=== PATIENT | male | born 1955 | race Caucasian/White ===

== ENCOUNTER 2017-05-04 11:51 | Emergency (ER) | payer OTHER ==
[~2017-05-04] VITALS: Ht 200.7 cm; Wt 136.0 kg
[~2017-05-04 11:51] MED LIST: CYCL5TAB PO; IBUP600T26 PO; METH750T2 PO; MOBI15TA PO
[2017-05-04 11:55] VITALS: BP 161/85; PULSE 78; RESP 16; TEMP 98.2; O2SAT 94
[2017-05-04] MEDS ORDERED: PARO20TA2 PO (12:16)
[2017-05-04] MEDS ORDERED: CHOL10008 PO (12:16)
[2017-05-04] MEDS ORDERED: LOVA40TA PO (12:16)
[2017-05-04] MEDS ORDERED: DILT30TA PO (12:16)
--- NOTE | 2017-05-04 12:20 | PD ---
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 DENIES ALLEVIATING /AGGRAVATING FACTORS. ALL:DENIES PMHX: HYPERLIPIDEMIA, CKD STAGE 2, PSHX: BACK SURGERY PFSH Past Medical History Influenza Vaccination: No Social History Alcohol Use: No Tobacco Use: No Substance Use: No Allergies-Medications (Allergen,Severity, Reaction): Coded Allergies: No Known Allergies (Unverified Adverse Reaction, Unknown, 05/04/17) Reported Meds & Prescriptions Reported Meds & Active Scripts Active Flexeril (Cyclobenzaprine HCl) 10 Mg Tab 10 Mg PO TID 3 Days Codeine-Acetaminophen 30-300 mg Tab 1 Tab PO Q4H PRN Cipro (Ciprofloxacin HCl) 500 Mg Tab 500 Mg PO BID 3 Days Reported Vitamin D3 (Cholecalciferol) 1,000 Unit Cap Unknown Dose PO DAILY Paroxetine (Paroxetine HCl) 20 Mg Tab 20 Mg PO DAILY Lovastatin 40 Mg Tab 40 Mg PO EVERY OTHER DAY Diltiazem (Diltiazem HCl) 30 Mg Tab Unknown Dose PO DAILY Review of Systems General / Constitutional: No: Fever Eyes: No: Visual changes HENT: No: Headaches Cardiovascular: No: Chest Pain or Discomfort Respiratory: No: Shortness of Breath Gastrointestinal: No: Abdominal Pain Genitourinary: Positive: Flank Pain Musculoskeletal: No: Pain Skin: No Rash Neurologic: No: Weakness Psychiatric: No: Depression Endocrine: No: Polydipsia Hematologic/Lymphatic: No: Easy Bruising Physical Exam Narrative GENERAL: SKIN: Warm and dry. HEAD: Atraumatic. Normocephalic. EYES: Pupils equal and round. No scleral icterus. No injection or drainage. ENT: No nasal bleeding or discharge. Mucous membranes pink and moist. NECK: Trachea midline. No JVD. CARDIOVASCULAR: Regular rate and rhythm. RESPIRATORY: No accessory muscle use. Clear to auscultation. Breath sounds equal bilaterally. GASTROINTESTINAL: Abdomen soft, non-tender, nondistended. C/O RT CVA AREA, positive reproducible pain and specifically worsen by twisting motion MUSCULOSKELETAL: Extremities without clubbing, cyanosis, or edema. No obvious deformities. NEUROLOGICAL: Awake and alert. No obvious cranial nerve deficits. Motor grossly within normal limits. Five out of 5 muscle strength in the arms and legs. Normal speech. PSYCHIATRIC: Appropriate mood and affect; insight and judgment normal. Data Data Last Documented VS Orders Orders Complete Blood Count With Diff (05/04/17 12:24) Comprehensive Metabolic Panel (05/04/17 12:24) Ct Abd/Pel W/O Iv Contrast (05/04/17 12:24) Ecg Monitoring (05/04/17 12:24) Iv Access Insert/Monitor (05/04/17 12:24) Sodium Chloride 0.9% Flush (Ns Flush) (05/04/17 12:30) Lipase (05/04/17 12:24) Ketorolac Inj (Toradol Inj) (05/04/17 14:30) Lorazepam Inj (Ativan Inj) (05/04/17 14:30) Ed Discharge Order (05/04/17 15:31) Labs Laboratory Tests Test 05/04/17 12:30 White Blood Count 7.4 TH/MM3 Red Blood Count 4.53 MIL/MM3 Hemoglobin 14.0 GM/DL Hematocrit 42.8 % Mean Corpuscular Volume 94.5 FL Mean Corpuscular Hemoglobin 30.9 PG Mean Corpuscular Hemoglobin Concent 32.7 % Red Cell Distribution Width 12.5 % Platelet Count 355 TH/MM3 Mean Platelet Volume 8.1 FL Neutrophils (%) (Auto) 66.7 % Lymphocytes (%) (Auto) 21.9 % Monocytes (%) (Auto) 9.8 % Eosinophils (%) (Auto) 0.6 % Basophils (%) (Auto) 1.0 % Neutrophils # (Auto) 5.1 TH/MM3 Lymphocytes # (Auto) 1.6 TH/MM3 Monocytes # (Auto) 0.7 TH/MM3 Eosinophils # (Auto) 0.0 TH/MM3 Basophils # (Auto) 0.1 TH/MM3 CBC Comment DIFF FINAL Differential Comment Blood Urea Nitrogen 14 MG/DL Creatinine 1.10 MG/DL Random Glucose 107 MG/DL Total Protein 8.4 GM/DL Albumin 4.0 GM/DL Calcium Level 9.1 MG/DL Alkaline Phosphatase 66 U/L Aspartate Amino Transf (AST/SGOT) 34 U/L Alanine Aminotransferase (ALT/SGPT) 50 U/L Total Bilirubin 0.4 MG/DL Sodium Level 137 MEQ/L Potassium Level 4.0 MEQ/L Chloride Level 106 MEQ/L Carbon Dioxide Level 23.8 MEQ/L Anion Gap 7 MEQ/L Estimat Glomerular Filtration Rate 68 ML/MIN Lipase 113 U/L MDM Medical Decision Making Medical Screen Exam Complete: Yes Emergency Medical Condition: Yes Medical Record Reviewed: Yes Differential Diagnosis KIDNEY STONES V PYELO V COLITIS V MUSCLE STRAIN Narrative Course NORMAL CBC (NO LEUKOCYTOSIS NOR ANY ANEMIA), NORMAL ELECTROLYTES, NORMAL LIVER/ KIDNEY/PANCREAS FUNCTIONS. Diagnosis Primary Impression: RIGHT MUSCLE STRAIN (BACK) Patient Instructions: General Instructions, Muscle Strain (DC) Scripts Cyclobenzaprine (Flexeril) 10 Mg Tab 10 MG PO TID for Muscle Spasm for 3 Days, #12 TAB 0 Refills Prov: Donal Aguillon MD 05/04/17 Codeine-Acetaminophen (Codeine-Acetaminophen) 30-300 mg Tab 1 TAB PO Q4H Y for PAIN, #12 TAB 0 Refills Prov: Donal Aguillon MD 05/04/17 Ciprofloxacin (Cipro) 500 Mg Tab 500 MG PO BID for Infection for 3 Days, #6 TAB 0 Refills Prov: Donal Aguillon MD 05/04/17 Disposition: 01 DISCHARGE HOME Condition: Stable Donal Aguillon MD May 04, 2017 12:20
[2017-05-04] MEDS ORDERED: SODIUM CHLORIDE 0.9% FLUSH 10 ML FLUSH IVF PRN (12:30)
[2017-05-04 12:39] LABS: AUTOMATED NEUTROPHIL # 5.1 TH/MM3 (1.8-7.7); BASOPHIL # 0.1 TH/MM3 (0-0.2); EOSINOPHIL % 0.6 % (0.0-4.0); HEMATOCRIT 42.8 % (39.0-51.0); LYMPH % 21.9 % (9.0-44.0); LYMPHOCYTE # 1.6 TH/MM3 (1.0-4.8); MEAN CELL VOLUME 94.5 FL (80.0-100.0); MEAN CORPUSCULAR HEMOGLOBIN 30.9 PG (27.0-34.0); MEAN CORPUSCULAR HGB CONC 32.7 % (32.0-36.0); MEAN PLATELET VOLUME 8.1 FL (7.0-11.0); MONO % 9.8 % (0.0-8.0); MONOCYTE # 0.7 TH/MM3 (0-0.9); NEUT % 66.7 % (16.0-70.0); PLATELET COUNT 355 TH/MM3 (150-450); RED BLOOD COUNT 4.53 MIL/MM3 (4.50-5.90); RED CELL DISTRIBUTION WIDTH 12.5 % (11.6-17.2); WHITE BLOOD COUNT 7.4 TH/MM3 (4.0-11.0)
[2017-05-04 12:46] LABS: CHLORIDE 106 MEQ/L (98-107); SODIUM (NA) 137 MEQ/L (136-145)
[2017-05-04 12:49] LABS: CALCIUM 9.1 MG/DL (8.5-10.1)
[2017-05-04 12:50] LABS: BICARBONATE 23.8 MEQ/L (21.0-32.0); BLOOD UREA NITROGEN 14 MG/DL (7-18); GLUCOSE,RANDOM 107 MG/DL (74-106); LIPASE 113 U/L (73-393)
[2017-05-04 12:53] LABS: ALT (GPT) 50 U/L (12-78); AST (GOT) 34 U/L (15-37); GLOMERULAR FILTRATION RATE 68 ML/MIN (>89)
[2017-05-04 12:54] LABS: TOTAL BILIRUBIN ADULT 0.4 MG/DL (0.2-1.0); TOTAL PROTEIN 8.4 GM/DL (6.4-8.2)
[2017-05-04 12:56] LABS: ALKALINE PHOSPHATASE 66 U/L (45-117)
--- NOTE | 2017-05-04 14:13 | RADRPT ---
EXAM DATE/TIME: 05/04/2017 13:47 [facility] COMPARISON: No previous studies available for comparison. INDICATIONS : Right flank pain. ORAL CONTRAST: No oral contrast ingested. RADIATION DOSE: 28.16 CTDIvol (mGy) ; Patient body habitus MEDICAL HISTORY : None SURGICAL HISTORY : Back surgery. ENCOUNTER: Initial ACUITY: 1 day PAIN SCALE: 7/10 LOCATION: Right flank TECHNIQUE: Volumetric scanning of the abdomen and pelvis was performed. Using automated exposure control and ad justment of the mA and/or kV according to patient size, radiation dose was kept as low as reasonably achievable to obtain optimal diagnostic quality images. DICOM format image data is available electro nically for review and comparison. FINDINGS: LOWER LUNGS: The visualized lower lungs are clear. LIVER: Homogeneous density without lesion. There is no dilation of the biliary tree. No calcified gallston es. SPLEEN: Normal size without lesion. PANCREAS: Within normal limits. KIDNEYS: Normal in size and shape. There is no mass, stone, or hydronephrosis. ADRENAL GLANDS: Within normal limits. VASCULAR: There is no aortic aneurysm. BOWEL/MESENTERY: The stomach, small bowel, and colon demonstrate no acute abnormality. There is no free intraperitone al air or fluid. ABDOMINAL WALL: Within normal limits. RETROPERITONEUM: There is no lymphadenopathy. BLADDER: No wall thickening or mass. REPRODUCTIVE: Within normal limits. INGUINAL: There is no lymphadenopathy or hernia. MUSCULOSKELETAL: Degenerative changes involving the lumbar spine most pronounced at L5-S1. CONCLUSION: 1. No acute abnormality to explain the patient's right flank pain. In particular, no stones. Estevan Steiner Jr., MD on May 04, 2017 at 14:08 Board Certified Radiologist. This report was verified electronically.
[2017-05-04] MEDS ORDERED: LORazepam 2 MG/ML VIAL IV PUSH ONE (14:30)
[2017-05-04] MEDS ORDERED: KETOROLAC TROMETHAMINE 30 MG/ML (IVP) VIAL IV PUSH ONE (14:30)
[2017-05-04 14:53] VITALS: BP 149/81; PULSE 75; RESP 18; O2SAT 100
[2017-05-04 15:20] VITALS: RESP 16
[2017-05-04] MEDS ORDERED: CIPR-9 PO (15:30)
[2017-05-04] MEDS ORDERED: CODE30TA2 PO (15:30)
[2017-05-04] MEDS ORDERED: CYCL10TA PO (15:36)
== END 2017-05-04 15:47 | disposition home or self-care (01) ==
LOC: PHED 11:51
DX: S29.012A Strain of muscle and tendon of back wall of thorax, initial encounter (principal); S39.012A Strain of muscle, fascia and tendon of lower back, initial encounter; E78.5 Hyperlipidemia, unspecified; N18.2 Chronic kidney disease, stage 2 (mild); X58.XXXA Exposure to other specified factors, initial encounter
CPT/HCPCS: 74176; 80053; 83690; 85025; 96374; 99285; J1885